=== PATIENT | female | born 1960 | race Caucasian/White ===

== ENCOUNTER 2020-04-11 16:57 | Outpatient (CLI) | payer OTHER | END 2020-04-11 16:58 | disposition home or self-care (01) | LOC: COV 16:57 | PROVIDERS: ATTEND Family Medicine | DX: R05 Cough (principal); Z20.828 Contact with and (suspected) exposure to other viral communicable diseases ==

== ENCOUNTER 2022-05-22 21:55 | Outpatient (CLI) | payer OTHER | END 2022-05-22 21:56 | disposition critical access hospital (66) | LOC: EMS 21:55 | DX: F41.9 Anxiety disorder, unspecified (principal); R25.1 Tremor, unspecified | CPT/HCPCS: A0425; A0429 ==

== ENCOUNTER 2022-05-22 22:27 | Emergency (ER) | payer OTHER ==
[2022-05-22 23:20] LABS: MEAN PLATELET VOLUME 10.2 fL (7.9-10.8); RED CELL DISTRIBUTION WIDTH 12.1 % (12.0-15.0)
[2022-05-22 23:22] LABS: BASOPHILS % (AUTO) 0.8 %; EOSINOPHILS % (AUTO) 0.6 %; HCT - HEMATOCRIT 42.8 % (37.0-47.0); HGB - HEMOGLOBIN 13.9 g/dL (12.0-16.0); LYMPHOCYTES % (AUTO) 18.7 %; MEAN CORPUSCULAR HEMOGLOBIN 31.9 pg (27.0-31.0); MEAN CORPUSCULAR HGB CONC 32.5 g/dL (32.0-36.0); MEAN CORPUSCULAR VOLUME 98.2 fL (81.0-99.0); NEUTROPHILS % (AUTO) 71.7 %; PLT - PLATELET COUNT 289 10^3/uL (130-450); RED BLOOD COUNT 4.36 10^6/uL (4.20-5.40); WHITE BLOOD COUNT 8.8 x10^3/uL (4.8-10.8)
[2022-05-22 23:26] LABS: ABNORMAL LYMPHS % (MANUAL) 0 %
[2022-05-22 23:37] LABS: ALBUMIN 4.2 g/dL (3.2-5.5); ALBUMIN/GLOBULIN RATIO 1.3 (1.0-2.2); BILIRUBIN,TOTAL 0.5 mg/dL (0.2-1.0); CALCIUM 9.5 mg/dL (8.5-10.3); CREATININE 0.6 mg/dL (0.4-1.0); POTASSIUM 4.1 mmol/L (3.5-5.0); TOTAL PROTEIN 7.5 g/dL (6.7-8.2)
[2022-05-22 23:53] LABS: BAND NEUTROPHILS % (MANUAL) 2 %; DIFFERENTIAL COMMENT MANUAL DIFFERENTIAL; LYMPHOCYTES # (MANUAL) 1.4 10^3/uL (1.5-3.5); LYMPHOCYTES % (MANUAL) 16 %; MONOCYTES # (MANUAL) 0.5 10^3/uL (0.0-1.0); NEUTROPHILS # (MANUAL) 6.9 10^3/uL (1.5-6.6); PLATELET ESTIMATE, MANUAL NORMAL (130-450,000) (NORMAL); RBC MORPHOLOGY (MULTIPLE) NORMAL APPEARANCE (NORMAL)
--- NOTE | 2022-05-23 00:31 | ED Physician Documentation ---
History of Present Illness - Stated complaint Stated Complaint: BODY TREMORS - Chief complaint Chief Complaint: Neuro - History obtained from History obtained from: Patient, Family - History of Present Illness Timing: Today - Additonal information Additional information: Previously well 62-year-old female has had sleep deprivation for the past 2 months. This evening she developed some lower extremity muscle twitching that was excessive she became concerned about the possibility of seizure and has come to the hospital. Her became concerned enough that he called the ambulance. The patient herself feels well now and has not had any further twitching. She indicates that she is only had 2 and half hours of sleep in the past 5 days. She has tried some trazodone at 50 mg and has not increased the dose that she tried some hydroxyzine which was also not effective. She has had this sleep deprivation associated with anxiety 4 times previously resulting in a prolonged sleep deprivation. She has not had sleep onset twitching previously. She does not take any medications regularly. Review of Systems Constitutional: reports: Fatigue. denies: Fever, Chills, Myalgias Eyes: denies: Decreased vision Ears: denies: Ear pain Nose: denies: Rhinorrhea / runny nose, Congestion Throat: denies: Sore throat Cardiac: denies: Chest pain / pressure, Palpitations Respiratory: denies: Dyspnea, Cough, Wheezing GI: denies: Abdominal Pain, Nausea, Vomiting, Constipation, Diarrhea : denies: Dysuria, Frequency Skin: denies: Rash Musculoskeletal: denies: Neck pain, Back pain, Extremity pain Neurologic: denies: Generalized weakness, Focal weakness, Numbness, Difficulty speaking, Headache, Head injury, LOC Psychiatric: reports: Anxiety, Insomnia PD PAST MEDICAL HISTORY - Allergies Allergies/Adverse Reactions: Allergies Allergy/AdvReac Type Severity Reaction Status Date / Time No Known Drug Allergies Allergy Verified 05/22/22 22:34 PD ED PE NORMAL - Vitals Vital signs reviewed: Yes - General General: Alert and oriented X 3, No acute distress, Well developed/nourished - HEENT HEENT: Atraumatic, PERRL, EOMI - Neck Neck: Supple, no meningeal sign, No bony TTP - Cardiac Cardiac: RRR, No murmur - Respiratory Respiratory: No respiratory distress, Clear bilaterally - Abdomen Abdomen: Soft, Non tender - Back Back: No CVA TTP, No spinal TTP - Derm Derm: Normal color, Warm and dry, No rash - Extremities Extremities: No deformity, No edema - Neuro Neuro: Alert and oriented X 3, legal instruments examiner 2-12 intact, No motor deficit, No sensory deficit, Normal speech Eye Opening: Spontaneous Motor: Obeys Commands Verbal: Oriented GCS Score: 15 - Psych Psych: Normal mood, Normal affect Results - Vitals Vitals: Vital Signs - 24 hr 05/22/22 05/22/22 22:34 22:38 Temperature 97.8 C H 36.6 C Heart Rate 90 90 Respiratory 16 16 Rate Blood Pressure 130/90 H 130/90 H O2 Saturation 99 99 Oxygen O2 Source Room air - Labs Labs: Laboratory Tests 05/22/22 05/22/22 05/22/22 23:15 23:15 23:15 WBC 8.8 RBC 4.36 Hgb 13.9 Hct 42.8 MCV 98.2 MCH 31.9 H MCHC 32.5 RDW 12.1 Plt Count 289 MPV 10.2 Neut # (Auto) Not Reportable Lymph # (Auto) Not Reportable [place] # (Auto) Not Reportable Eos # (Auto) Not Reportable Baso # (Auto) Not Reportable Absolute Nucleated RBC Not Reportable Total Counted 100 Band Neuts % (Manual) 2 Abnorm Lymph % (Manual) 0 Nucleated RBC % Not Reportable Neutrophils # (Manual) 6.9 H Lymphocytes # (Manual) 1.4 L Monocytes # (Manual) 0.5 Eosinophils # (Manual) 0.0 Basophils # (Manual) 0.0 Differential Comment MANUAL DIFFERENTIAL Platelet Estimate NORMAL (130-450,000) RBC Morph Micro Appear NORMAL APPEARANCE Sodium 138 Potassium 4.1 Chloride 99 L Carbon Dioxide 30 Anion Gap 9.0 BUN 19 Creatinine 0.6 Estimated GFR (MDRD) 101 Glucose 119 H Calcium 9.5 Total Bilirubin 0.5 AST 24 ALT 24 Alkaline Phosphatase 48 Total Protein 7.5 Albumin 4.2 Globulin 3.3 Albumin/Globulin Ratio 1.3 Lipase 37 TSH 1.46 PD Medical Decision Making - ED course Complexity details: considered differential, d/w patient, d/w family Reviewed Lab Results: I reviewed some screening laboratory results including a complete blood count and chemistries including electrolytes glucose kidney liver and pancreas function. These were all normal studies as were a normal study of the thyroid stimulating hormone. ED course: 62-year-old female with anxiety and related sleep deprivation has started her anxiety with a trip to [place] and she has had trouble sleeping since and as she continues that she begins to have more and more anxiety about not sleeping. Despite this she has not gone to polypharmacy to attempt to get to sleep. She has not tried [id number] preparations. She has talked to her doctor she is taking 50 mg of trazodone she has never increased the dose. She has taken some hydroxyzine which was ineffective. I have asked the patient to increase her dose of trazodone to 100 mg this evening and if it is ineffective to go to 150 mg the following night. I have indicated the patient she may have some hangover related to an increased of the dose and her body will adjust to it.I have strongly advocated the medication. Departure - Departure Disposition: 01 Home, Self Care Clinical Impression: Sleep deprivation Condition: Stable Instructions: ED Insomnia Follow-Up: Kayleen Smith MD [Primary Care Provider] - Comments: Alyssa, today it looks like you have developed some side effect from sleep deprivation. My recommendation is to increase your dose of trazodone to 100 mg this evening and if this is ineffective at providing improved sleep increase it to 150 mg the following night. These increased doses may result in feeling groggy in the morning but your body will adjust to that over a period of several days. My recommendation is to take this medication regularly for at least 1 to 2 weeks and longer if needed. If you are unable to get sleep with an increased dose of trazodone follow-up with your primary care doctor for alternative agents.
[2022-05-23 00:48] VITALS: BP 132/99
== END 2022-05-23 00:47 | disposition home or self-care (01) ==
LOC: EDUNIT# → ED 22:27
DX: Z72.820 Sleep deprivation (principal)
CPT/HCPCS: 36415; 80053; 83690; 84443; 85025; 99282; 99283